=== PATIENT | male | born 1955 | race Caucasian/White ===

== ENCOUNTER → 2021-05-01 | Outpatient (CLI) | payer MEDICARE, OTHER ==
[~2021-05-01] MED LIST: CITALOPRAM HBR20 MG PO; DEBROX15 ML AU; DICLOFENAC SODI50 MG PO; LISINOPRIL40 MG PO; LORTAB 7.5-3251 EACH PO; MECLIZINE HCL25 MG PO; METFORMIN HCL500 MG PO; NEURONTIN 400400 MG PO; NORCO 10-325 T1 EACH PO; ONDANSETRON ODT4 MG SL; TRAZODONE HCL50 MG PO; VALIUM 5 MG TAB5 MG PO; XARELTO10 MG PO; ZOCOR40 MG PO; ZYRTEC10 M3 PO
== END ==
LOC: KOH-I 15:00
DX: Z01.818 Encounter for other preprocedural examination (principal); M19.012 Primary osteoarthritis, left shoulder; M25.712 Osteophyte, left shoulder; M25.812 Other specified joint disorders, left shoulder
CPT/HCPCS: 73200

== ENCOUNTER → 2021-05-10 | Outpatient (CLI) | payer MEDICARE, OTHER ==
[2021-05-10 08:55] LABS: HEMOGLOBIN 14.5 gm/dl (14.0-17.5); RED BLOOD COUNT 4.86 M/UL (4.20-5.50); WHITE BLOOD COUNT 6.4 K/UL (4.5-11.0)
[2021-05-10 09:12] LABS: BUN/CREATININE RATIO 17 (0-10)
== END ==
LOC: OPSV2 07:54 → EDSTATUS 08:00 → OPSV2 08:00
PROVIDERS: Orthopaedic Surgery
DX: Z01.818 Encounter for other preprocedural examination (principal); M19.012 Primary osteoarthritis, left shoulder; R94.31 Abnormal electrocardiogram [ECG] [EKG]
CPT/HCPCS: 36415; 71046; 80048; 81001; 85025; 87081; 93005

== ENCOUNTER 2021-05-24 08:04 | Day surgery (SDC) | payer MEDICARE, OTHER ==
[~2021-05-24] VITALS: Ht 175.3 cm; Wt 83.9 kg
[~2021-05-24 08:04] MED LIST changes: -DEBROX15 ML AU; -MECLIZINE HCL25 MG PO; -ONDANSETRON ODT4 MG SL
[2021-05-25 06:19] LABS: HEMOGLOBIN 12.3 gm/dl (14.0-17.5); RED BLOOD COUNT 4.21 M/UL (4.20-5.50); WHITE BLOOD COUNT 8.9 K/UL (4.5-11.0)
[2021-05-25 06:45] LABS: BUN/CREATININE RATIO 18 (0-10)
--- NOTE | 2021-05-25 10:35 | NUR ---
spoke with dr chino related to discharge order from dr brown. ok with dr chino to co home.
== END 2021-05-25 11:10 | disposition home or self-care (01) ==
LOC: OR 08:04 → M/S 14:28 → OR 14:34 → M/S 05-25 11:10
PROVIDERS: Orthopaedic Surgery
PROC: 0LS40ZZ Reposition Left Upper Arm Tendon, Open Approach (ICD-10-PCS; 2021-05-24)
PROC: 3E0T3BZ Introduction of Anesthetic Agent into Peripheral Nerves and Plexi, Percutaneous Approach (ICD-10-PCS; 2021-05-24)
PROC: 0RRK00Z Replacement of Left Shoulder Joint with Reverse Ball and Socket Synthetic Substitute, Open Approach (ICD-10-PCS; principal; 2021-05-24 10:00)
DX: M19.012 Primary osteoarthritis, left shoulder (principal); I10 Essential (primary) hypertension; E78.5 Hyperlipidemia, unspecified; R00.1 Bradycardia, unspecified; F17.210 Nicotine dependence, cigarettes, uncomplicated; F32.9 Major depressive disorder, single episode, unspecified; Z20.822 Contact with and (suspected) exposure to COVID-19; Z79.82 Long term (current) use of aspirin; Z79.899 Other long term (current) drug therapy
CPT/HCPCS: 73020; 80048; 85025; 97162; 97530-GP-CQ; C1713; C1776; J0171; J0690; J1100; J1170; J1885; J2001; J2250; J2405; J2550; J2704; J2710; J2795; J3010; J7120

== ENCOUNTER 2021-05-30 09:56 | Emergency (ER) | payer MEDICARE, OTHER ==
[2021-05-30 11:12] LABS: RED BLOOD COUNT 4.1 M/UL (4.20-5.50); WHITE BLOOD COUNT 5.4 K/UL (4.5-11.0)
[2021-05-30 11:39] LABS: BUN/CREATININE RATIO 25 (0-10)
[2021-05-30] MEDS ORDERED: MECLIZINE HCL25 MG PO (13:30)
[2021-05-30] MEDS ORDERED: ONDANSETRON ODT4 MG SL (13:30)
[2021-05-30] MEDS ORDERED: DEBROX15 ML AU (13:30)
== END 2021-05-30 14:02 | disposition home or self-care (01) ==
LOC: ER1 09:56
PROVIDERS: Physician Assistant
DX: R42 Dizziness and giddiness (principal); J32.0 Chronic maxillary sinusitis; H61.23 Impacted cerumen, bilateral; I10 Essential (primary) hypertension
CPT/HCPCS: 70450; 80053; 81001; 82550; 82553; 83874; 84484; 85025; 93005; 96374; 99284; J2405